=== PATIENT | female | born 1990 | race Two or more races ===

== ENCOUNTER 2018-08-09 18:53 | Emergency (ER) | payer OTHER ==
[2018-08-09] MEDS ORDERED: IPRATROPIUM/ALBUTEROL 3 ML NEB INH STA (22:27)
[2018-08-09] MEDS ORDERED: predniSONE 20 MG TABLET PO STA (22:27)
--- NOTE | 2018-08-09 23:07 | ED Physician Documentation ---
PD HPI DYSPNEA - Stated complaint Stated Complaint: SOA/ASTHMA - Chief complaint Chief Complaint: Resp - History obtained from History obtained from: Patient, Family - History of Present Illness Timing - onset: How many weeks ago (2) Timing - onset during: Rest Timing - duration: Weeks (2) Timing - details: Gradual onset, Still present Inciting event(s): Allergic rxn/anaphylaxis Improved by: Inhaler/neb Worsened by: Exertion, Coughing Associated symptoms: Cough, Wheezing. No: Fever Similar symptoms before: Diagnosis (asthma exacerbation) Recently seen: Not recently seen - Additional information Additional information: 27-year-old female with a history of chronic persistent asthma has developed a increase in her shortness of breath and she has been having to use her inhaler multiple times today. She does have a cough which is nonproductive of sputum she does not have any fever. She states this is happened to her every year at about this time and she is required a course of prednisone with this. She does use a steroid inhaler twice per day she states this is not helped with this illness. Review of Systems Constitutional: denies: Fever Eyes: denies: Decreased vision Ears: denies: Ear pain Nose: reports: Congestion Throat: denies: Sore throat Cardiac: reports: Chest pain / pressure. denies: Palpitations, Pedal edema, Calf pain Respiratory: reports: Dyspnea, Cough, Wheezing GI: denies: Abdominal Pain, Nausea, Vomiting : denies: Dysuria, Frequency PD PAST MEDICAL HISTORY - Past Medical History Respiratory: Asthma - Past Surgical History Past Surgical History: Yes General: Other - Present Medications Home Medications: Ambulatory Orders Medication Instructions Recorded Confirmed Albuterol Sulfate [Proair Hfa 1 - 2 puffs INH Q4H PRN 07/15/16 07/15/16 Inhaler] Montelukast Sodium [Singulair] 08/09/18 RX: predniSONE [Deltasone] 10 mg PO ONCE #20 tablet 08/09/18 - Allergies Allergies/Adverse Reactions: Allergies Allergy/AdvReac Type Severity Reaction Status Date / Time No Known Drug Allergies Allergy Verified 08/09/18 18:59 - Social History Does the pt smoke?: No Smoking Status: Never smoker Does the pt drink ETOH?: No Does the pt have substance abuse?: No - Immunizations Immunizations are current?: Yes PD ED PE NORMAL - Vitals Vital signs reviewed: Yes - General General: Alert and oriented X 3, Well developed/nourished, Other (mild dyspnea at rest) - HEENT HEENT: Atraumatic, PERRL, EOMI, Ears normal, Moist mucous membranes - Neck Neck: Supple, no meningeal sign, No bony TTP - Cardiac Cardiac: RRR, No murmur - Respiratory Respiratory: Other (tachypneic with scattered wheezes and rhonchi ) - Abdomen Abdomen: Soft, Non tender - Back Back: No CVA TTP, No spinal TTP - Derm Derm: Normal color, Warm and dry, No rash - Extremities Extremities: No deformity, No edema - Neuro Neuro: No motor deficit, No sensory deficit Eye Opening: Spontaneous Motor: Obeys Commands Verbal: Oriented GCS Score: 15 - Psych Psych: Normal mood, Normal affect Results - Vitals Vitals: Vital Signs - 24 hr 08/09/18 08/09/18 08/09/18 18:55 22:14 22:39 Temperature 36.6 C 36.9 C Heart Rate 116 H 95 Respiratory 20 20 16 Rate Blood Pressure 130/81 H 124/92 H O2 Saturation 97 99 08/09/18 23:14 Temperature 36.5 C Heart Rate 98 Respiratory 20 Rate Blood Pressure 135/89 H O2 Saturation 96 Oxygen O2 Source Room air PD MEDICAL DECISION MAKING - ED course Complexity details: reviewed old records, considered differential, d/w patient, d/w family ED course: 27-year-old female with a history of asthma has acute exacerbation. Here in the [facility] department she is administered a DuoNeb treatment and 60 mg of prednisone. She is put on a prednisone taper and will follow up with her primary care doctor. Departure - Departure Disposition: 01 Home, Self Care Clinical Impression: Asthma exacerbation Condition: Stable Instructions: ED Reactive Airway Disease Follow-Up: Milly Chawla MD [Primary Care Provider] - Prescriptions: RX: predniSONE [Deltasone] 10 mg PO ONCE #20 tablet Discharge Date/Time: 08/09/18 23:15
[2018-08-09 23:15] VITALS: BP 135/89
== END 2018-08-09 23:15 | disposition home or self-care (01) ==
LOC: ED 18:53
DX: J45.901 Unspecified asthma with (acute) exacerbation (principal)
CPT/HCPCS: 94640; 99283